=== PATIENT | male | born 1950 | race Caucasian/White ===

== ENCOUNTER 2025-03-22 23:16 | Emergency (ER) | payer MEDICARE, SELFPAY ==
--- OUTSIDE RECORDS SUMMARY | 2025-03-22 23:18 | XMS_ITS | Clinical Summary ---
Author Organization [employer] [facility] Address [address] [place] [address] Care Team Providers Care Real Estate Job Titles Name Role Phone Jake Orosco MD Primary Care Provider [phone] Allergies Active Allergy Reactions Criticality Noted Date Comments Erythromycin Stomach Upset Medications Compression Socks, Large miscIndications:Lef t leg swelling As directed. 2 Each 2 Active losartan (COZAAR) 50 mg tabletIndications:H TN (hypertension) Take 1 Tablet (50 mg) by mouth once daily. 90 Tablet 3 5 Active omeprazole 20 mg tabletIndications:C hronic GERD Take 1 Tablet (20 mg) by mouth once daily before a meal. 90 Tablet 3 5 Active fluticasone (50 mcg per actuation) nasal solution (FLONASE)Indication s:Post-nasal drip Inhale 1 [place] in both nostrils once daily. 16 g 3 5 Active atorvastatin (LIPITOR) 40 mg tabletIndications:H yperlipidemia, unspecified hyperlipidemia type Take 1 Tablet (40 mg) by mouth once daily. 90 Tablet 3 5 Active loratadine (CLARITIN ORAL) Take by mouth. has been taking for 2-2.5 weeks Active MULTIVITAMIN ORAL Take by mouth. Active Active Problems Problem Noted Date Diagnosed Date HTN (hypertension) 07/13/2024 Hyperlipidemia 10/30/2021 Adenomatous colon polyp 12/26/2018 Overview (09/13/2022): Colonoscopy 12/2018 large polyp, repeat in 3 years Colonoscopy 09/2022 normal, repeat in 5 years Prostate cancer 05/25/2010 Genital herpes, unspecified 05/25/2010 Encounters Date Type Department Care Team Description 03/01/2025 2:30 PM CDT Office Visit [facility] [address] [place] [id number] Philippe Yuan MD Follow Up (CT result) 03/01/2025 Travel from Last 3 Months Immunizations Immunization Administration Dates Next Due COVID-19 VACCINE SPIKEVAX (M ODERNA 50MCG/0.5ML) 12YO+ PFS 03/04/2023 COVID-19 vaccine (Pfizer-Bio NTech 30mcg/0.3mL) MD DORISV 08/30/2020,08/09/2020 Hepatitis A (Adult) 05/23/1999 Influenza RIV4 (Age 18+ Year s) PRESERV FREE 04/03/2019 Influenza, High-dose Inactivated 024,04/12/2018,03/20/2017,03/06 Influenza, High-dose Quadriv alent Inactivated 02/19/2023,03/12/2022,03/19/2021 Influenza, IIV3 (Age 6-35 mos) 03/06/2020 Influenza, IIV3 (Age >=3 years) 04/17/2003,04/10 Pneumococcal Poly,23-Valent (Pneumovax) 04/22/2018,04/01/1995 Pneumococcal conj 13-Valent (Prevnar 13) 05/09/2017 RSV, Recombinant ADJ Reconst ituted (Arexvy 120MCG/0.5mL) 02/19/2023 Td (Age >=7 Years) 01/03/2000 Tdap 07/22/2023,10/09/2012 Zoster (Shingrix-RZV, recombinant) 06/30/2018, Family History Medical History Relation Name Comments Diabetes Father Diabetes Paternal Grandfather Diabetes Sister Relation Name Status Comments Father Paternal Grandfather Sister Social History Tobacco Use Types Packs/Day Years Used Date Smoking Tobacco: Former Cigarettes Q uit: 06/10/1980 Smokeless Tobacco: Never Tobacco Cessation:Counseling Given: Yes Alcohol Use Standard Drinks/Week Comments Yes 2 (1 standard drink = 0.6 oz pur e alcohol) 2 drinks per week PHQ-2 Answer Date Recorded PHQ-2 TOTAL SCORE 0 08/10/2024 Social Connections Answer Date Recorded Do you often feel lonely or isolated from those around you? 0 07/13/2024 Financial Resource Strain Answer Date R ecorded Difficulty of Paying Living Expenses 3 07/13/2024 Difficulty of Paying Living Expenses Not on file 07/13/2024 Food Insecurity Answer Date Recorded Do you worry your food will run out before you are able to buy more? 1 07/13/2024 Transportation Needs Answer Date Record ed Does lack of transportation keep you from medica l appointments? 1 07/13/2024 Does lack of transportation keep you from work, meetings or getting things that you need? 1 07/13/2024 Housing Stability Answer Date Recorded What is your housing situation today? 1 07/13/2024 Utilities Answer Date Recorded Do you have trouble paying f or utilities (for example, heat, electricity, water, phone)? 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 Gender Identity Not on file Sexual Orientation Not on file Occupation Industry Job Start Date Job End Date retired Not on file Not on file Not on file Obstetrics History Last Filed Vital Signs Vital Sign Reading Time Taken Comments Blood Pressure 136/76 03/01/2025 2:14 PM CDT Pulse 76 03/01/2025 2:14 PM CDT Temperature 36.7 C (98 F) 10/14/2024 4:26 PM CDT Respiratory Rate 16 09/13/2022 1:05 PM CDT Oxygen Saturation 96% 03/01/2025 2:14 PM CDT Inhaled Oxygen Concentration - - Weight 73.3 kg (161 lb 9.6 oz) 03/01/2025 2:14 P M CDT Height 159.5 cm (5' 2.8) 03/01/2025 2:14 PM CDT Body Mass Index 28.81 03/01/2025 2:14 PM CDT Plan of Treatment Health Maintenance Due Date Last Done Comments COVID-19 vaccine series () 02/08/2025 03/04/2024, 03/04/2023, 03/12/2022, Additional history exists Influenza Vaccine (#1) 2025 , 03/06/2020, 04/03/2019, Additional history exists Medicare Wellness for age 65+ 08/11/2025 08/10/2024, 05/13/2023, 10/30/2021, Additional history exists Depression screening for age 12+ 08/13/2025 08/13/2024, 08/10/2024, 05/13/2023, Additional history exists BMI (ht and wt on same day) for age 18+ 03/01/2026 03/01/2025, 11/09/2024, 08/10/2024, Additional history exists Colonoscopy through age 75 09/14/202709/13, 09/13/2022, 12/24/2018, Additional history exists Lipids for age 45-75 08/10/2029 08/10/2024, 05/13/2023, 09/25/2021, Additional history exists Tetanus booster 07/22/2033 07/22/2023, 05/0 07/2012, 01/03/2000 Pneumococcal series for age 50+ Completed 04/22/2018, 05/09/2017, 04/01/1995 Zoster (shingles) series for age 50+ Completed 06/30/2018, 02/12/2018 Hepatitis C screening for age 18-79 Completed 09/25/2021, 09/25/2021 RSV vaccine for adults or Completed 02/19/2023 Hepatitis B series for 19+ Aged Out N o longer eligible based on patient's age to complete this topic Procedures Procedure Name Priority Date/Time Associated Diagnosis Comments LIPID PANEL Routine 08/10/2024 3:52 PM SECURITY SYSTEMS INTEGRATOR Hyperlipidemia, unspecified hyperlipidemia type COLONOSCOPY 09/13/2022 11:43 AM CDT ANTI HCV Routine 09/25/2021 11:51 AM CDT Need for hepatitis C screening test from Last 3 Months or Most Recently Relevant to Health Maintenance Results * (ABNORMAL) LIPID PANEL (08/10/2024 3:52 PM SECURITY SYSTEMS INTEGRATOR) [facility] CHOLESTEROL, TOTAL 198 <200 mg/dL [facility] HDL CHOLESTEROL 54 > OR = 40 mg/dL [facility] TRIGLYCERIDES 236(H) <150 mg/dL [facility] Comment: If a non-fasting specimen was collected, consider repeat triglyceride testing on a fasting specimen if clinically indicated. Tano et al. J. of Clin. Lipidol. 2015;9:129-169. LDL-CHOLESTEROL 108(H) mg/dL (calc) [facility] Comment: Reference range: <100 Desirable range <100 mg/dL for primary prevention; <70 mg/dL for patients with CHD or diabetic patients with > or = 2 CHD risk factors. LDL-C is now calculated using the Samuel-Abhay calculation, which is a validated novel method providing better accuracy than the Friedewald equation in the estimation of LDL-C. Samuel SS et al. ALLIE. 2013;310(19): 7358-6178 (http://education.EasyPost/faq/XLR438) CHOL/HDLC RATIO 3.7 <5.0 (calc) [facility] [employer] NON HDL CHOLESTEROL 144(H) <130 mg/dL (calc) [facility] Comment: For patients with diabetes plus 1 major ASCVD risk factor, treating to a non-HDL-C goal of <100 mg/dL (LDL-C of <70 mg/dL) is considered a therapeutic option. Blood BLOOD SPECIMEN / Unknown 08/10/2024 3:52 PM SECURITY SYSTEMS INTEGRATOR 08/10/2024 3:54 PM SECURITY SYSTEMS INTEGRATOR Narrative [facility] - 08/11/2024 3:55 AM SECURITY SYSTEMS INTEGRATOR FASTING:NO FASTING: NO us Jaek Orosco MD CHEMISTRY Final Resu lt [facility] [address] [place] [address], [facility] [address] [place] [address] * COLONOSCOPY (09/13/2022 11:43 AM CDT) 09/13/2022 11:4 3 AM CDT Narrative Transcriptions Samuel Mallory MD - 09/13/2022 12:39 PM CDT Patient Name: Akil Nguyen Procedure Date: 09/13/2022 Gender: Male Date of : 1950 Admit Type: Outpatient Procedure: Colonoscopy Proceduralist: Samuel Mallory MD , Liz Alonzo, MARY(Nurse), Karlene Almaraz (Nurse) Indications/Pre-Op Diagnosis: High risk colon cancer surveillance:Personal history of adenoma (10 mm or greater insize), Last colonoscopy: December 2018 Medications: Fentanyl 100 micrograms IV, Midazolam 2 mgIV, The level of sedation administered wasmoderate Procedure Description: The patient had risks, benefits and alternatives explained to andgave informed consent. The patient had a stable cardiopulmonary status and judged an adequate candidate for conscious sedation. The endoscope PCF-H190L [id number] was passed through the anus andadvanced to the cecum, identified by appendiceal orifice and ileocecal valve.The colonoscopy was performed without difficulty. The patient toleratedthe procedure well. The quality of the bowel preparation was good. The ileocecal valve, appendiceal orifice, and rectum were photographed. Complications: No immediate complications. Estimated Blood Loss & Specimen: Estimated blood loss: none. Specimen collected - Yes and sent to Laboratory Findings: The perianal and digital rectal examinations were normal. The entire examined colon appeared normal. Impressions/Post-Op Diagnosis: - The entire examined colon is normal. - No specimens collected. Recommendation: - Patient has a contact number available for emergencies. The signsand symptoms of potential delayed complications were discussed with the patient. Return to normal activities tomorrow. Written discharge instructions were provided to the patient. - Resume previous diet. - Continue present medications. - Repeat colonoscopy in 5 years for surveillance. Moderate Sedation: A time out was performed before the procedure. Moderate (conscious) sedation was administered by the endoscopy nurse and supervised bythe endoscopist. The following parameters were monitored: oxygensaturation, heart rate, blood pressure, EKG, CO2, respiratory rate, adequacy of pulmonary ventilation and reponse to care. Please refer to the patient's medical record flowsheets and nursing notes for moderate sedation details. Total physician intraservice time was 15 minutes. Samuel Mallory MD 09/13/2022 12:38:53 PM This report has been signed electronically. Note Initiated On: 09/13/2022 11:43 AM Procedure Code(s): --- Professional --- 52701, Colonoscopy, flexible; diagnostic, including collection of specimen(s) bybrushing or washing, when performed (separateprocedure) Diagnosis Code(s): --- Professional --- Z86.010, Personal history of colonicpolyps CPT copyright 2021 [employer]. All rights reserved. The codes documented in this report are preliminary and upon biscuitware brusher reviewmay be revised to meet current compliance requirements. Scope In: 12:18:49 PM Scope Withdrawal Time 0 hours 10 minutes 20 seconds Scope Out: 12:32:04 PM us Samuel Mallory MD PROCEDURE ORD Final Res ult * (ABNORMAL) ANTI HCV (09/25/2021 11:51 AM CDT) HEPATITIS C ANTIBODY Equivocal( A) Non-Reacti ve 09/26/2021 9:54 AM CDT [facility] Comment:Equivocal; Reflexed to HCV RNA Quant (See separate report). Blood BLOOD SPECIMEN / Unknown Venipuncture / Unknown 09/25/2021 11:51 AM CDT 09/25/2021 11:51 AM CDT us Jake Orosco MD SEND OUTS Final Resu lt [facility] [address] [place] [address], [place] from Last 3 Months or Most Recently Relevant to Health Maintenance Insurance [facility] MEDICARE ADVANTAGE MR MEDICARE PART A HB ONLY Advance Directives * Full Code (Latest Code Status on File) Date Activated Date Inactivated Comments 03/15/2008 5:22 PM 03/16/2008 8:38 PM Care Teams Real Estate Job Titles Relationship Specialty Start Date End Date Jake Orosco MD [address] [place] [address] PCP - General Family Practice 08/05/20
[2025-03-22 23:24] VITALS: BP 166/85; PULSE 75; RESP 18; TEMP 36.6; O2SAT 99; BMI 27.5
--- NOTE | 2025-03-22 23:41 | ED.EAR ---
HPI - Ear Problem General Chief complaint: Ear/Nose/Throat Problem Stated complaint: L ear pain Time Seen by Provider: 03/22/25 23:32 History of Present Illness HPI Narrative: This 74-year-old male comes in with left ear pain. He wears hearing aids bilaterally. He took out his hearing aid several days ago and did not realize that the bud on the end of the hearing aid remain lodged in the ear canal. He discovered this a couple days ago and used a make shift tool at home to dislodge the but from his left ear canal. He has had significant pain in this left ear since this occurred. He does not report any fevers or upper respiratory symptoms. Related Data Allergies Allergy/AdvReac Type Severity Reaction Status Date / Time azithromycin Allergy Mild Hives Verified 03/22/25 23:26 Review of Systems Status of ROS: Reports: 10 or more systems reviewed and unremarkable except as noted in History and below Narrative: Constitutional: No fevers, no weight gain or loss. Eyes: No discharge. No vision changes. HENT: No congestion, no sore throat. Left ear pain as described above. Cardiovascular: No chest pain, no palpitations. Respiratory: No shortness of breath, no wheezes, no cough. Gastrointestinal: No abdominal pain, no vomiting, no diarrhea. Genitourinary: No dysuria, no hematuria. Musculoskeletal: Normal range of motion. Skin: No rashes, no pruritis. Neurological: No dizziness, weakness, sensory change, speech change. Endo/Heme/Allergies: No bruising or bleeding. No polydipsia. Pysch: no suicidality, no anxiety, no insomnia. All other systems reviewed and are negative. PFSH PFS Social History Smoking Status: Never smoker Second hand tobacco smoke exposure: No How often do you have a drink containing alcohol: never AUDIT-C Alcohol total score: 0 Non-prescribed substance use: denies use Exam Narrative: Exam Narrative: Constitutional: Well-developed, well-nourished, no acute distress. HEENT: Normocephalic, atraumatic. Right tympanic membrane appears normal. Left tympanic membrane is poorly visualized as the patient is in distinct discomfort when attempting to straighten the canal for better visualization. It is noted that he has some mild swelling and erythema on the anterior aspect of the distal portion of the canal. There is no fluid or drainage from the canal. Neck: Normal range of motion. Nontender. Supple. Heart: Intact distal pulses. Lungs: No chest discomfort. No wheezes, rhonchi, or rales. Abdomen: Nontender. Back: Normal range of motion. Extremities: Normal range of motion. No injury. Skin: Intact. No rash. Warm. No erythema or pallor. Neurologic: No altered sensation. No weakness. Alert and oriented. Psychiatric: No suicidality. No anxiety or depression. No insomnia. Nursing notes and vitals signs are reviewed. Const: Vital Signs, click to edit/add: Vital Signs - 24 hr 03/22/25 23:24 Temperature 97.9 F Pulse Rate [Right Pulse Oximeter] 75 Respiratory Rate 18 Blood Pressure [Ri ght Upper Arm] 166/85 H Pulse Oximetry 99 Oxygen Delivery Me thod Room Air Course Vital Signs Vital signs: Initial Vital Signs Temperature 97.9 F 03/22/25 23:24 Temperature Source Temporal Artery Scan 03/22/25 23:24 Pulse Rate 75 03/22/25 23:24 Respiratory Rate 18 03/22/25 23:24 Blood Pressure 166/85 H 03/22/25 23:24 Blood Pressure Mean 112 H 03/22/25 23:24 Blood Pressure Position Sitting 03/22/25 23:24 Pulse Oximetry 99 03/22/25 23:24 Oxygen Delivery Method Room Air 03/22/25 23:24 Vital Signs Temperature 97.9 F 03/22/25 23:24 Pulse Rate 75 03/22/25 23:24 Respiratory Rate 18 03/22/25 23:24 Blood Pressure 166/85 H 03/22/25 23:24 Pulse Oximetry 99 03/22/25 23:24 Oxygen Delivery Method Room Air 03/22/25 23:24 Temperature 97.9 F 03/22/25 23:24 Pulse Rate 75 03/22/25 23:24 Respiratory Rate 18 03/22/25 23:24 Blood Pressure 166/85 H 03/22/25 23:24 Pulse Oximetry 99 03/22/25 23:24 Oxygen Delivery Method Room Air 03/22/25 23:24 Medical Decision Making MDM Narrative Medical decision making narrative: This patient has left ear pain and on exam it is noted that there is some erythema and mild swelling. There is no sign of injury as he did remove a hearing aid blood using a make shift tool that he had at home. I advised the patient to use Tylenol and ibuprofen as needed and directed. I did provide a prescription for amoxicillin from the [facility]. Discharge Plan Discharge Clinical Impression: Otitis externa Patient Disposition: Home, Self-Care Condition: Stable Additional Instructions: Take medication as prescribed. Use [id number] medicines also as needed and directed. Follow up with MD return if worsening. Stand Alone Forms: [employer] Info Instructions
[2025-03-22 23:47] VITALS: BP 166/85; PULSE 75; RESP 18; TEMP 36.6
[2025-03-22 23:53] VITALS: BP 158/85; PULSE 79; RESP 18; TEMP 36.6; O2SAT 99
== END 2025-03-22 23:54 | disposition home or self-care (01) ==
LOC: ED 23:53
PROVIDERS: Emergency Provider Emergency Medicine Emergency Medical Services; PCP Surgery
DX: H60.92 Unspecified otitis externa, left ear (principal)
CPT/HCPCS: 99283; 99284

== ENCOUNTER 2025-04-06 09:33 | Emergency (ER) | payer MEDICARE, SELFPAY ==
[2025-04-06] VITALS (12 sets, daily range): BP systolic 145–159; BP diastolic 74–92; PULSE 71–86; RESP 18; TEMP 36.9; O2SAT 87–98; BMI 27.3
--- OUTSIDE RECORDS SUMMARY | 2025-04-06 09:41 | XMS_ITS | Clinical Summary ---
Author Organization [employer] [facility] Address [address] [place] [address] Care Team Providers Care Shipping Technician Name Role Phone Jake Orosco MD Primary Care Provider [phone]- [phone] Allergies Active Allergy Reactions Criticality Noted Date [...] nasal solution (FLONASE)Indication s:Post-nasal drip Inhale 1 [place] in both nostrils once daily. 16 g [...] Encounters Date Type Department Care Team Description 04/06/2025 Nurse Triage [facility] [address] [place] [address] Jake Orosco MD Neck Pain/problem (In pain in neck, stiff neck, pain in right side and left side of arms) 03/01/2025 2:30 PM CDT Office Visit [facility] [address] [place] [address] Philippe Yuan MD Follow Up (CT result) 03/01/2025 Travel from Last 3 Months Immunizations Immunization Administration Dates Next Due COVID-19 VACCINE SPIKEVAX (M ODERNA 50MCG/0.5ML) 12YO+ PFS 03/04/2023 COVID-19 vaccine (DDVTECHBio NTech 30mcg/0.3mL) PF, MDV 08/30/2020,08/09/2020 Hepatitis A (Adult) 05/23/1999 Influenza RIV4 [...] on file 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 Gender Identity Not on file Sexual Orientation [...] Health Maintenance Due Date Last Done Comments Influenza Vaccine (#1) 2025 , 03/06/2020, 04/03/2019, [...] Comments LIPID PANEL Routine 08/10/2024 3:52 PM FIRE SUPERVISOR Hyperlipidemia, unspecified hyperlipidemia type COLONOSCOPY 09/13/2022 11:43 AM CDT ANTI HCV Routine 09/25/2021 11:51 AM CDT Need for hepatitis C screening test from Last 3 Months or Most Recently Relevant to Health Maintenance Results * (ABNORMAL) LIPID PANEL (08/10/2024 3:52 PM FIRE SUPERVISOR) [facility] CHOLESTEROL, TOTAL 198 <200 mg/dL [facility] HDL CHOLESTEROL 54 > OR = 40 mg/dL [facility] TRIGLYCERIDES 236(H) <150 mg/dL [facility] Comment: If a non-fasting specimen was collected, consider repeat triglyceride testing on a fasting specimen if clinically indicated. Tano et al. J. of Clin. Lipidol. 2015;9:129-169. LDL-CHOLESTEROL 108(H) mg/dL (calc) [facility] Comment: Reference range: <100 Desirable range <100 mg/dL for primary prevention; <70 mg/dL for patients with CHD or diabetic patients with > or = 2 CHD risk factors. LDL-C is now calculated using the Samuel-Abhay calculation, which is a validated novel method providing better accuracy than the Friedewald equation in the estimation of LDL-C. Samuel SS et al. ALLIE. 2013;310(19): 6048-9528 (http://education.51edj/faq/SZP724) CHOL/HDLC RATIO 3.7 <5.0 (calc) [facility] NON HDL CHOLESTEROL 144(H) <130 mg/dL (calc) [facility] Comment: For patients with diabetes plus 1 major ASCVD risk factor, treating to a non-HDL-C goal of <100 mg/dL (LDL-C of <70 mg/dL) is considered a therapeutic option. Blood BLOOD SPECIMEN / Unknown 08/10/2024 3:52 PM FIRE SUPERVISOR 08/10/2024 3:54 PM FIRE SUPERVISOR Narrative [facility] - 08/11/2024 3:55 AM FIRE SUPERVISOR FASTING:NO FASTING: NO us Jake Orosco MD CHEMISTRY Final Resu lt [facility] [address] [place] [address], [facility] [address] [place] [address] * COLONOSCOPY (09/13/2022 11:43 AM CDT) 09/13/2022 11:4 3 AM CDT Narrative Transcriptions Samuel Mallory MD - 09/13/2022 12:39 PM CDT Patient Name: Akil Nguyen Procedure Date: 09/13/2022 Gender: Male Date of : 1950 Admit Type: Outpatient Procedure: Colonoscopy Proceduralist: Samuel Mallory MD , Liz Alonzo, RN(Nurse), Karlene Almaraz (Nurse) Indications/Pre-Op Diagnosis: High risk [...] candidate for conscious sedation. The endoscope PCF-H190L [id number] was passed through the anus andadvanced to [...] 11:43 AM Procedure Code(s): --- Professional --- 88411, Colonoscopy, flexible; diagnostic, including collection of specimen(s) bybrushing or washing, when performed (separateprocedure) Diagnosis Code(s): --- Professional --- Z86.010, Personal history of colonicpolyps CPT copyright 2021 [employer]. All rights reserved. The codes documented in this report are preliminary and upon drum printer reviewmay be revised to meet current compliance requirements. Scope In: 12:18:49 PM Scope Withdrawal Time 0 hours 10 minutes 20 seconds Scope Out: 12:32:04 PM us Samuel Mallory MD PROCEDURE ORD Final Res ult * (ABNORMAL) ANTI HCV (09/25/2021 11:51 AM CDT) HEPATITIS C ANTIBODY Equivocal( A) Non-Reacti ve 09/26/2021 9:54 AM CDT [facility] Comment:Equivocal; Reflexed to HCV RNA Quant (See separate report). Blood BLOOD SPECIMEN / Unknown Venipuncture / Unknown 09/25/2021 11:51 AM CDT 09/25/2021 11:51 AM CDT Jake Orosco MD SEND OUTS Final Resu lt [facility] [address] [place] [address], from Last 3 Months or Most Recently Relevant to Health Maintenance Insurance [facility] MEDICARE ADVANTAGE MR MEDICARE PART A HB ONLY Advance Directives * Full Code (Latest Code Status on File) Date Activated Date Inactivated Comments 03/15/2008 5:22 PM 03/16/2008 8:38 PM Care Teams Shipping Technician Relationship Specialty Start Date End Date Jake Orosco MD [address] [place] [address] PCP - General Family Practice 08/05/20
--- NOTE | 2025-04-06 10:08 | CT_ITS ---
Patient: CHARAN MURRAY Facility:?[facility] Patient ID:?[id number] Site Patient ID:?[id number]. Site :?[id number] Study:?CT-Neck Angio Angio 95CC ISOVUE 370 NON ACUTE-04/06/2025 11:25:12 AM Ordering Physician:Ligia Joseph Final Report: DATE: 04/06/2025 CLINICAL HISTORY: Patient with left-sided neck pain. TECHNIQUE: Standard helical CT image acquisition of the neck up to the skull base after bolus intravenous contrast enhancement. 2D and 3D MIP images for post-processing were performed and interpreted on an independent workstation and 3D images were permanently archived. COMPARISON: None. FINDINGS: The origins of the great vessels from the aortic arch are patent. The origin of the right vertebral artery demonstrates severe narrowing. 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 The common carotid arteries are patent. There is plaque without stenosis at the origin of the right internal carotid artery. There is plaque without stenosis at the origin of the left internal carotid artery. The rest of the cervical segments of the internal carotid arteries are patent up to the skull base. The vertebral artery is dominant. The cervical segments of the vertebral arteries are patent up to the skull base. The visualized lung apices are unremarkable. The thyroid gland is unremarkable. The soft tissues of the neck demonstrates fluid in the left mastoid air cells. There are degenerative changes in the cervical spine. IMPRESSION: 1. 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 2. Patent rest of the cervical vasculature. 3. Left mastoid effusion. Please note that all CT scans at this facility use dose modulation, iterative reconstruction, and/or weight-based dosing when appropriate to reduce radiation dose to as low as reasonably achievable. Dictated by Gabriel Jackson MD @ 04/06/2025 4:22:46 PM (Electronic Signature)
[2025-04-06] MEDS: MORPHINE 4 MG/ML INJ IVP (10:25)
[2025-04-06 10:27] LABS: Creatinine, Point-of-Care* 1.1 mg/dl (0.6-1.3)
--- NOTE | 2025-04-06 10:27 | ED.NECK ---
HPI - Neck Pain/Injury General Date Seen: 04/06/25 <Jake Jolley DO - Last Filed: 04/06/25 16:03> Chief Complaint: Neck Injury/Pain <Jake Jolley DO - Last Filed: 04/06/25 16:03> Stated Complaint: Neck pain <Jake Jolley DO - Last Filed: 04/06/25 16:03> Time Seen by Provider: 04/06/25 09:42 <Jake Nitesh Shola DO - Last Filed: 04/06/25 16:03> Source: patient <Jake Jolley DO - Last Filed: 04/06/25 16:03> Mode of arrival: ambulatory <Jake Jolley - Last Filed: 04/06/25 16:03> Limitations: no limitations <Jake Jolley DO - Last Filed: 04/06/25 16:03> History of Present Illness HPI Narrative: Patient is a 74-year-old male presenting to the emergency department for left-sided neck pain. He states a little over week ago he was seen in the emergency department and treated with amoxicillin for otitis externa and unclear if there was otitis media due to the swelling making the tympanic membrane difficult to visualize. He states the ear pain has improved but not fully gone away. Couple days ago he started noticing left-sided neck pain. Pain seems to be just below the left ear in the posterior lower neck. He states the posterior lower/lateral neck is were the pain is the worst more he feels whenever he tries to turn his head. States he is having difficulty turning his head due to the pain. He is unsure if it is a muscle strain or not. Has not had any fevers. Denies any pain behind the ear. Denies headache, vision changes, weakness, numbness, shortness. The states she has difficulty swallowing. He states at baseline when he swallows pills he is still his head back but he is unable to due to the neck pain. Does state overall his swallowing even with food seems worse to. Does not notice any sore throat. Does have some mild pain anterior to left ear is unsure if it is related to his poor dental hygiene. Denies any pain within the mouth. <Jake Jolley - Last Filed: 04/06/25 16:03> Related Data Home Medications: Home Medications ?Medication ?Instructions ?Recorded ?Confirmed atorvastatin 40 mg tablet 40 mg PO DAILY 04/06/25 04/06/25 losartan 50 mg tablet 50 mg PO DAILY 04/06/25 04/06/25 omeprazole 20 mg capsule,delayed 20 mg PO DAILY 04/06/25 04/06/25 release Previous Rx's ?Medication ?Instructions ?Recorded amoxicillin 875 mg-potassium 1 tab PO BID #20 tabs 04/06/25 clavulanate 125 mg tablet ciprofloxacin 0.3 %-dexamethasone 4 drp otic (ear) BID 7 days #7.5 mL 04/06/25 0.1 % ear drops,suspension <Jake Jolley DO - Last Filed: 04/06/25 16:03> Allergies/Adverse Reactions: Allergies Allergy/AdvReac Type Severity Reaction Status Date / Time azithromycin Allergy Mild Hives Verified 04/06/25 12:14 <Jake Jolley DO - Last Filed: 04/06/25 16:03> Review of Systems Status of ROS: Reports: 10 or more systems reviewed and unremarkable except as noted in History and below <Jake Jolley DO - Last Filed: 04/06/25 16:03> [facility] Social History: Social History Smoking Status: Never smoker Second hand tobacco smoke exposure: No How often do you have a drink containing alcohol: never AUDIT-C Alcohol total score: 0 Non-prescribed substance use: denies use service: No <DO Ramona Quiroz Last Filed: 04/06/25 16:03> Exam Narrative: Exam Narrative: Const: Well-nourished, Well-developed, in moderate distress Eyes: PERRL, no conjunctival injection, and symmetrical lids HENT: Atraumatic external nose and ears. Moist mucous membranes. Poor dentition but no tenderness noted inside the mouth. There is some mild tenderness noted just anterior to left ear. No tenderness or swelling noted behind the ear. There is still swelling noted within the external auditory canal. Difficult to fully evaluate panic membrane due to the swelling Neck: Decreased range motion of neck secondary to pain. Tenderness noted to the left paraspinal lower neck around C7. Mild tenderness noted just below the left ear. CVS: RRR, No murmurs or gallops. Peripheral pulses 2+ and equal in all extremities RESP: Unlabored respiratory effort. Clear to auscultation bilaterally. GI: Nontender/Nondistended, No rebound or guarding. MSK:Extremities w/o deformity, decreased range of motion of neck secondary to pain. Skin: Warm, Dry. No rashes or lesions. Neuro: Normal Muscle tone, No focal neurological deficits. Psych: Awake, Alert, & Oriented x3. Appropriate mood and affect. <Jake Jolley DO - Last Filed: 04/06/25 16:03> Const: Vital Signs, click to edit/add: Vital Signs - 24 hr 04/06/25 09:43 04/06/25 13:24 04/06/25 13:30 Temperature 98.4 F Pulse Rate 78 77 Pulse Rate [Pulse Oximeter] 86 Respiratory Rate 18 Blood Pressure Blood Pressure [Ri ght Upper Arm] 145/74 H Pulse Oximetry 98 97 95 Oxygen Delivery Me thod Room Air 04/06/25 13:32 Temperature Pulse Rate 74 Pulse Rate [Pulse Oximeter] Respiratory Rate 18 Blood Pressure 151/87 H Blood Pressure [Ri ght Upper Arm] Pulse Oximetry 95 Oxygen Delivery Me thod <Jake Jolley DO - Last Filed: 04/06/25 16:03> Vital Signs, click to edit/add: Vital Signs - 24 hr 04/06/25 09:43 04/06/25 13:24 04/06/25 13:30 Temperature 98.4 F Pulse Rate 78 77 Pulse Rate [Pulse Oximeter] 86 Respiratory Rate 18 Blood Pressure Blood Pressure [Ri ght Upper Arm] 145/74 H Pulse Oximetry 98 97 95 Oxygen Delivery Me thod Room Air 04/06/25 13:32 Temperature Pulse Rate 74 Pulse Rate [Pulse Oximeter] Respiratory Rate 18 Blood Pressure 151/87 H Blood Pressure [Ri ght Upper Arm] Pulse Oximetry 95 Oxygen Delivery Me thod <Allen Beyer MD - Last Filed: 04/06/25 18:00> Course Course ED Course: Patient signed out to Dr. Beyer at 4:15 p.m., pending MRI results. 74-year-old gentleman presenting to the ER today with left-sided earache, left-sided neck pain on the lateral side of his neck. Workup so far shows a mild leukocytosis, possible ongoing otitis externa and otitis media. Dr. Jolley already did CT angiogram of his neck to look for limb air syndrome. This was negative. No evidence for any abscess in the soft tissue of the neck. There were a couple of other incidental findings. One of them was possible mastoiditis. Dr. Jolley is already discussed this with ENT who does not feel the patient needed to be admitted for IV antibiotics or go to the surgery for debridement. He would recommend starting the patient on Augmentin to treat his ongoing ear infection. Another incidental finding is degenerative disc disease in the cervical spine which could be a cause for neck pain. The 3rd incidental finding was that the patient had a hypoplastic left vertebral artery. Unable to completely rule out an acute vertebral dissection. Dr. Jolley consulted with stroke neurology recommend getting a dissection protocol MRA of the patient's head and neck. The patient is signed out to me pending results of that imaging. If it shows chronic occlusion of left vertebral, patient can discharge as per Dr. Hurtado's plan. If it does show signs of acute vertebral dissection, Dr. Beyer will consult again with Stroke Neurology to determine management. MRA of the patient's head and neck came back at about 17 40 Impression: MRA Head: 1. Proximally occluded left vertebral artery, retrograde filling via the basilar artery. 2. Otherwise, unremarkable MRA head. 3. No evidence for acute/subacute ischemia. MRA Neck: 1. 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 2. Otherwise, unremarkable MRA neck. Dictated by Bonnie Dobbs MD @ 04/06/2025 5:35:[address] Beyer recheck the patient at 4:45 p.m. He is sitting up in bed, drinking. Speaking easily. Phonation normal. No trismus. He does complain of pain in the front of his throat when he swallows. Did a pharyngeal exam. His uvula is midline. Tonsils are symmetric and not really enlarged or inflamed. Phonation is normal. Tongue normal. Dentition and submandibular tissues are normal. No evidence for any blood legs angina. No sign of facial cellulitis. I do not see evidence for [employer], RPA on clinical exam. Normal phonation argues against epiglottitis and neck imaging is already been normal today. Inspection of the right ear reveals a normal mastoid (no redness or tenderness. Normal pinna. The canal does appear to be inflamed erythematous and it is hard to see all the way down to his eardrum because the canal is swollen. I do not see any bleeding or purulent drainage. No foreign body. I am able to see half of the TM it does appear to have some greenish opaque purulent fluid behind it. Patient is eager for discharge. Will discharge him home with [facility] prescriptions for Percocet, as well as Augmentin. Says he does not think he is going to be able to get to [facility] pharmacy tonight before they close. Discussed return precautions. If he has worsening neck pain would consider cervical spine MRI to look for possible ligamentous inflammation of the anterior longitudinal ligament as well as other problems such as cervical disc disease. If he has worsening pain ear would consider possible worsening or evolving mastoiditis. <Allen Beyer MD - Last Filed: 04/06/25 18:00> Vital Signs Vital signs: Initial Vital Signs Temperature 98.4 F 04/06/25 09:43 Temperature Source Temporal Artery Scan 04/06/25 09:43 Pulse Rate 86 04/06/25 09:43 Respiratory Rate 18 04/06/25 09:43 Blood Pressure 145/74 H 04/06/25 09:43 Blood Pressure Mean 97 04/06/25 09:43 Pulse Oximetry 98 04/06/25 09:43 Oxygen Delivery Method Room Air 04/06/25 09:43 Vital Signs Temperature 98.4 F 04/06/25 09:43 Pulse Rate 86 04/06/25 09:43 Respiratory Rate 18 04/06/25 09:43 Blood Pressure 145/74 H 04/06/25 09:43 Pulse Oximetry 98 04/06/25 09:43 Oxygen Delivery Method Room Air 04/06/25 09:43 Temperature 98.4 F 04/06/25 09:43 Pulse Rate 74 04/06/25 13:32 Respiratory Rate 18 04/06/25 13:32 Blood Pressure 151/87 H 04/06/25 13:32 Pulse Oximetry 95 04/06/25 13:32 Oxygen Delivery Method Room Air 04/06/25 09:43 <Jake Jolley DO - Last Filed: 04/06/25 16:03> Initial Vital Signs Temperature 98.4 F 04/06/25 09:43 Temperature Source Temporal Artery Scan 04/06/25 09:43 Pulse Rate 86 04/06/25 09:43 Respiratory Rate 18 04/06/25 09:43 Blood Pressure 145/74 H 04/06/25 09:43 Blood Pressure Mean 97 04/06/25 09:43 Pulse Oximetry 98 04/06/25 09:43 Oxygen Delivery Method Room Air 04/06/25 09:43 Vital Signs Temperature 98.4 F 04/06/25 09:43 Pulse Rate 86 04/06/25 09:43 Respiratory Rate 18 04/06/25 09:43 Blood Pressure 145/74 H 04/06/25 09:43 Pulse Oximetry 98 04/06/25 09:43 Oxygen Delivery Method Room Air 04/06/25 09:43 Temperature 98.4 F 04/06/25 09:43 Pulse Rate 74 04/06/25 13:32 Respiratory Rate 18 04/06/25 13:32 Blood Pressure 151/87 H 04/06/25 13:32 Pulse Oximetry 95 04/06/25 13:32 Oxygen Delivery Method Room Air 04/06/25 09:43 <Allen Beyer MD - Last Filed: 04/06/25 18:00> Medications Administered Medications: Discontinued Medications Generic Name Dose Route Start Last Admin Trade Name Jaminq PRN Reason Stop Dose Admin Hydromorphone HCl 0.5 mg 04/06/25 12:40 04/06/25 13:26 Hydromorphone 0.5 Mg/0.5 Ml Inj IVP 04/06/25 12:41 0.5 mg ONCE ONE Administration Vancomycin/PEG/NADA/Lysine/Water 1.5 gm in 300 mls @ 200 mls/hr 04/06/25 14:15 04/06/25 14:19 Vancomycin 1.5 Gm/300 Ml IVPB 04/06/25 15:44 Not Given ONCE ONE Protocol Ceftriaxone Sodium 1 gm/ 100 mls @ 200 mls/hr 04/06/25 13:45 04/06/25 14:36 Sodium Chloride IVPB 04/06/25 14:14 Infused ONCE ONE Infusion Morphine Sulfate 4 mg 04/06/25 10:08 04/06/25 10:25 Morphine 4 Mg/Ml Inj IVP 04/06/25 10:09 4 mg ONCE ONE Administration <Jake Jolley DO - Last Filed: 04/06/25 16:03> Discontinued Medications Generic Name Dose Route Start Last Admin Trade Name Amos PRN Reason Stop Dose Admin Hydromorphone HCl 0.5 mg 04/06/25 12:40 04/06/25 13:26 Hydromorphone 0.5 Mg/0.5 Ml Inj IVP 04/06/25 12:41 0.5 mg ONCE ONE Administration Vancomycin/PEG/NADA/Lysine/Water 1.5 gm in 300 mls @ 200 mls/hr 04/06/25 14:15 04/06/25 14:19 Vancomycin 1.5 Gm/300 Ml IVPB 04/06/25 15:44 Not Given ONCE ONE Protocol Ceftriaxone Sodium 1 gm/ 100 mls @ 200 mls/hr 04/06/25 13:45 04/06/25 14:36 Sodium Chloride IVPB 04/06/25 14:14 Infused ONCE ONE Infusion Morphine Sulfate 4 mg 04/06/25 10:08 04/06/25 10:25 Morphine 4 Mg/Ml Inj IVP 04/06/25 10:09 4 mg ONCE ONE Administration <Allen Beyer MD - Last Filed: 04/06/25 18:00> MDM - Neck Pain/Injury MDM Narrative Medical decision making narrative: Patient is a 74-year-old male presenting for neck pain. No signs of Phuong syndrome. With the neck pain so soon after an ear infection I do have some concern for Lemierre's syndrome. Will do a CTA for better evaluation. Will also give him some pain medication. Patient CTA return evaluated by myself and the radiologist. I spoke to Dr. Monaco of Radiology. He states the imaging does show signs of mastoiditis. He also has severe degenerative disc disease worse at C5-C6 and C6-C7 levels. These both could be likely causes of his pain. 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 Due to this finding I will speak to stroke Neuro. They recommend do an MRA dissection protocol to look for dissection. This was ordered. I also spoke to Dr. Andrade of ENT. He states he has not believe that this is mastoiditis and recommends discharged on Ciprodex and Augmentin from an ENT standpoint. By that time ready give him a dose of Rocephin. Ciprodex and Augmentin will be ordered. <Jake Jolley, DO - Last Filed: 04/06/25 16:03> Lab Data Labs: Lab Results 04/06/25 04/06/25 Range/Units 10:08 12:32 WBC 12.41 H (4.50-11.00) K/uL RBC 4.79 (4.30-5.90) m/uL Hgb 14.4 (13.5-17.5) gm/dL Hct 44.0 (37.0-53.0) % MCV 92 (80-100) fL MCH 30 (26-34) pg MCHC 33 (32-36) gm/dL RDW Coeff of Basilia 12.8 (11.5-15.5) % Plt Count 338 (140-440) K/uL Neut % (Auto) 77.8 H (42.0-72.0) % Lymph % (Auto) 9.8 L (20-44) % Pendleton % (Auto) 10.6 (0.0-11.0) % Eos % (Auto) 1.2 (0.0-7.0) % Baso % (Auto) 0.3 (0.0-3.0) % Neut # (Auto) 9.70 H (1.7-7.0) K/uL Lymph # (Auto) 1.20 (0.90-2.90) K/uL Pendleton # (Auto) 1.30 H (0.00-0.90) K/UL Eos # (Auto) 0.10 (0.00-0.50) K/uL Baso # (Auto) 0.00 (0.00-0.30) K/uL Abs Immat Gran (auto) 0.00 (0.00-0.30) K/uL Imm/Tot Granulo (auto) 0.3 % Sodium 138 (135-149) mmol/L Potassium 4.6 (3.6-5.1) mmol/L Chloride 103 (96-114) mmol/L Carbon Dioxide 29 (20-32) mmol/L Anion Gap 6 L (7-15) mEq/L BUN 18 (7-30) mg/dL Creatinine 1.0 (0.5-1.5) mg/dL Estimated Creat Clear 51.37 Estimated GFR 78 ml/min Glucose 98 (60-115) mg/dL Calcium 9.3 (8.4-10.6) mg/dL Lab Acknowledgement Test Added POC Creatinine 1.1 (0.6-1.3) mg/dl <Jake Dowling Shola, DO - Last Filed: 04/06/25 16:03> Lab Results 04/06/25 04/06/25 Range/Units 10:08 12:32 WBC 12.41 H (4.50-11.00) K/uL RBC 4.79 (4.30-5.90) m/uL Hgb 14.4 (13.5-17.5) gm/dL Hct 44.0 (37.0-53.0) % MCV 92 (80-100) fL MCH 30 (26-34) pg MCHC 33 (32-36) gm/dL RDW Coeff of Basilia 12.8 (11.5-15.5) % Plt Count 338 (140-440) K/uL Neut % (Auto) 77.8 H (42.0-72.0) % Lymph % (Auto) 9.8 L (20-44) % Pendleton % (Auto) 10.6 (0.0-11.0) % Eos % (Auto) 1.2 (0.0-7.0) % Baso % (Auto) 0.3 (0.0-3.0) % Neut # (Auto) 9.70 H (1.7-7.0) K/uL Lymph # (Auto) 1.20 (0.90-2.90) K/uL Pendleton # (Auto) 1.30 H (0.00-0.90) K/UL Eos # (Auto) 0.10 (0.00-0.50) K/uL Baso # (Auto) 0.00 (0.00-0.30) K/uL Abs Immat Gran (auto) 0.00 (0.00-0.30) K/uL Imm/Tot Granulo (auto) 0.3 % Sodium 138 (135-149) mmol/L Potassium 4.6 (3.6-5.1) mmol/L Chloride 103 (96-114) mmol/L Carbon Dioxide 29 (20-32) mmol/L Anion Gap 6 L (7-15) mEq/L BUN 18 (7-30) mg/dL Creatinine 1.0 (0.5-1.5) mg/dL Estimated Creat Clear 51.37 Estimated GFR 78 ml/min Glucose 98 (60-115) mg/dL Calcium 9.3 (8.4-10.6) mg/dL Lab Acknowledgement Test Added POC Creatinine 1.1 (0.6-1.3) mg/dl <Allen Beyer MD - Last Filed: 04/06/25 18:00> Imaging Data CTA neck: Attestation: I have reviewed the pertinent imaging results. <Jake Jolley DO - Last Filed: 04/06/25 16:03> Radiologist's impression: Preliminary Report: The thoracic aorta is nonaneurysmal. The common carotid arteries are patent. There is minimal atherosclerotic plaque at the right greater than left carotid bifurcations with no evidence of clinically significant stenosis. The distal internal carotid arteries are patent. There is a dominant right and likely hypoplastic left vertebral artery with portions absent perfusion seen throughout the left vertebral artery which could represent scattered foci of chronic atherosclerotic narrowing; however, age-indeterminate sequela of dissection is not included in the setting of neck pain. There is moderate to severe degenerative disc disease appreciated worst at the C5-C6 and C6-C7 levels noted. If there remains persistent clinical concern for potential neck pain follow-up with MRI may be useful for improved characterization. There is moderate fluid opacity within the left mastoid air cells without obvious bony erosion of the overlying tegmen tympani. There is minimal thickening of the tympanic membrane. Findings discussed with Jake Jolley at 12:25 p.m. at 04/06/25 Dictated by Jean-Pierre Monaco MD @ 04/06/2025 12:30:16 PM <Jake Jolley DO - Last Filed: 04/06/25 16:03> Discharge Plan Discharge Clinical Impression: Neck pain Degenerative joint disease of cervical spine Qualifiers: Spinal osteoarthritis complication: other spinal osteoarthritis Qualified Code(s): M47.892 - Other spondylosis, cervical region Otitis media Qualifiers: Otitis media type: unspecified Chronicity: acute Qualified Code(s): H66.90 - Otitis media, unspecified, unspecified ear Otitis externa Qualifiers: Otitis externa type: unspecified type Chronicity: acute Laterality: left Qualified Code(s): H60.502 - Unspecified acute noninfective otitis externa, left ear <Jake Jolley DO - Last Filed: 04/06/25 16:03> Patient Disposition: Home, Self-Care <Jake Jolley DO - Last Filed: 04/06/25 16:03> Condition: Stable <Jake Jolley - Last Filed: 04/06/25 16:03> Instructions: Swimmer's Ear (ED), Ear Infection (ED), Neck Pain (ED) <Jake Jolley DO - Last Filed: 04/06/25 16:03> Additional Instructions: Is recommended you follow-up with ENT for your otitis externa and otitis media. Their number is [phone]. Take the antibiotics as directed both the oral and the ear drops. I recommend Tylenol and ibuprofen for you degenerative disc disease. I do recommend following up with the primary care provider for this also as they may want to do further imaging. As we discussed, please come back to the ER right away if you have worsening symptoms-especially fever, worsening trouble swallowing, bleeding or drainage from your here, swelling or redness of your ear or the left side of your neck. Be careful with prescription pain killer. It can cause dizziness, drowsiness, constipation and can be addictive. <Jake Jolley DO - Last Filed: 04/06/25 16:03> Prescriptions: New ciprofloxacin-dexamethasone 0.3-0.1 % drops,suspension 4 drp otic (ear) BID 7 Days Qty: 7.5 0RF amoxicillin-pot clavulanate 875-125 mg tablet 1 tab PO BID Qty: 20 0RF No Action losartan 50 mg tablet 50 mg PO DAILY atorvastatin 40 mg tablet 40 mg PO DAILY omeprazole 20 mg capsule,delayed release(DR/EC) 20 mg PO DAILY <Jake Jolley DO - Last Filed: 04/06/25 16:03> Follow Up/Referrals: Jake Orosco MD [Primary Care Provider, Family Practice] <Jake Jolley DO - Last Filed: 04/06/25 16:03> Stand Alone Forms: [facility] Info Instructions <Jake Jolley DO Last Filed: 04/06/25 16:03>
--- NOTE | 2025-04-06 13:10 | CRLHL7_ITS ---
For Patients: As a result of the Century Cures Act, medical imaging exams and procedure reports are released immediately into your electronic medical record. You may view this report before your referring provider. If you have questions, please contact your health care provider. Indication: Hypoplastic left vertebral artery, neck pain Technique: MRA Head: performed without IV contrast. Diffusion-weighted sequences were also obtained through the brain. MRA Neck: performed before and after IV contrast. Gadolinium-based contrast agent: 20 mL Dotarem IV contrast. Comparison: CTA neck 04/06/2025. Findings: MRA Head: Proximally occluded left vertebral artery demonstrates retrograde filling via the basilar artery. The intracranial segments of the internal carotid arteries and basilar artery are widely patent. The anterior, middle and posterior cerebral arteries and proximal branches are unremarkable. No evidence of aneurysm. No high-flow AV malformation. No high-grade stenosis. No abnormal restricted diffusion. MRA Neck: The bilateral common carotid arteries, internal and external carotid arteries are grossly patent. No stenosis near the common carotid bifurcations. The right vertebral artery is also grossly patent. The left vertebral artery is occluded from its origin, without suspicious intrinsic T1 shortening. There is faint distal reconstitution via retrograde filling from the basilar artery. Impression: MRA Head: 1. Proximally occluded left vertebral artery, retrograde filling via the basilar artery. 2. Otherwise, unremarkable MRA head. 3. No evidence for acute/subacute ischemia. MRA Neck: 1. 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 2. Otherwise, unremarkable MRA neck. Dictated by Bonnie Dobbs MD @ 04/06/2025 5:35:58 PM (Electronically Signed)
[2025-04-06 13:19] LABS: Hematocrit* 44.0 % (37.0-53.0); Hemoglobin* 14.4 gm/dL (13.5-17.5); Immature Granulocytes Pct Auto 0.3 %; Mean Corpuscular HGB Conc 33 gm/dL (32-36); Mean Corpuscular Hemoglobin 30 pg (26-34); Mean Corpuscular Volume 92 fL (80-100); RDW Coefficient of Variation % 12.8 % (11.5-15.5); Red Blood Count* 4.79 m/uL (4.30-5.90); White Blood Count* 12.41 K/uL (4.50-11.00)
[2025-04-06 13:25] LABS: Chloride* 103 mmol/L (96-114); Potassium* 4.6 mmol/L (3.6-5.1); Sodium* 138 mmol/L (135-149)
[2025-04-06 13:26] LABS: Immature Granulocytes Abs Auto 0.00 K/uL (0.00-0.30); Lymphocytes Absolute Auto 1.20 K/uL (0.90-2.90); Slide Review Reflex No
[2025-04-06 13:28] LABS: Anion Gap 6 mEq/L (7-15); Blood Urea Nitrogen* 18 mg/dL (7-30); Calcium* 9.3 mg/dL (8.4-10.6); Carbon Dioxide* 29 mmol/L (20-32); Creatinine* 1.0 mg/dL (0.5-1.5); Est. Creatinine Clearance* 51.37; Estimated Glomerular Filt Rate 78 ml/min; Glucose* 98 mg/dL (60-115)
[2025-04-06] MEDS: cefTRIAXone 1 GM in 0.9 % SODIUM CHLORIDE Mini-bag 100 ML IVPB (13:58)
== END 2025-04-06 18:32 | disposition home or self-care (01) ==
PROVIDERS: Student in an Organized Health Care Education/Training Program; Emergency Provider Emergency Medicine; PCP Surgery
DX: M47.892 Other spondylosis, cervical region (principal); H60.502 Unspecified acute noninfective otitis externa, left ear; S09.90XA Unspecified injury of head, initial encounter
CPT/HCPCS: 36415; 70498; 70544; 70549; 80048; 82565; 85025; 96365; 96366; 96375; 99285; A9575; J0696; J1171; J2270; Q9967